=== PATIENT | female | born 1940 | race Caucasian/White ===

== ENCOUNTER 2018-12-04 11:15 | Emergency (ER) | payer MEDICARE ==
[2018-12-04] MEDS ORDERED: LIDOCAINE HCL 1% 20 ML VIAL ONE (11:42)
[2018-12-04] MEDS ORDERED: OCTYL 2-CYANOACRYLATE 1 EACH TP ONE (11:43)
[2018-12-04] MEDS ORDERED: TETANUS/DIPHTHERIA TOXOID [ADULT] 0.5 ML VIAL IM ONE (11:43)
== END 2018-12-04 12:44 | disposition home or self-care (01) ==
LOC: EDH 11:15
DX: S01.01XA Laceration without foreign body of scalp, initial encounter (principal); S01.81XA Laceration without foreign body of other part of head, initial encounter; I10 Essential (primary) hypertension; F41.9 Anxiety disorder, unspecified; Z86.718 Personal history of other venous thrombosis and embolism; W10.8XXA Fall (on) (from) other stairs and steps, initial encounter; Y93.89 Activity, other specified; Y92.098 Other place in other non-institutional residence as the place of occurrence of the external cause; Y99.8 Other external cause status
CPT/HCPCS: 12032; 12051; 70450; 72125; 90471; 90714

== ENCOUNTER 2018-12-11 13:21 | Emergency (ER) | payer MEDICARE | END 2018-12-11 14:48 | disposition home or self-care (01) | LOC: EDH 13:21 | DX: S01.81XD Laceration without foreign body of other part of head, subsequent encounter (principal); I10 Essential (primary) hypertension; F41.9 Anxiety disorder, unspecified; Z86.718 Personal history of other venous thrombosis and embolism; Z87.891 Personal history of nicotine dependence; X58.XXXD Exposure to other specified factors, subsequent encounter | CPT/HCPCS: 93005 ==